=== PATIENT | female | born 1945 | race Caucasian/White ===

== ENCOUNTER 2018-05-30 08:00 | Outpatient (CLI) | payer MEDICARE, OTHER ==
[2018-05-30 12:36] LABS: BASOPHILS # (AUTO) 0.1 10^3/uL (0.0-0.1); EOSINOPHILS # (AUTO) 0.2 10^3/uL (0.0-0.7); EOSINOPHILS % (AUTO) 3.1 %; HGB - HEMOGLOBIN 13.4 g/dL (12.0-16.0); LYMPHOCYTES # (AUTO) 1.2 10^3/uL (1.5-3.5); MEAN CORPUSCULAR HEMOGLOBIN 28.8 pg (27.0-31.0); MEAN CORPUSCULAR HGB CONC 33.1 g/dL (32.0-36.0); MEAN CORPUSCULAR VOLUME 87.1 fL (81.0-99.0); MEAN PLATELET VOLUME 10.3 fL (7.9-10.8); MONOCYTES # (AUTO) 0.6 10^3/uL (0.0-1.0); MONOCYTES % (AUTO) 8.5 %; NEUTROPHILS # (AUTO) 5.1 10^3/uL (1.5-6.6); NEUTROPHILS % (AUTO) 69.4 %; PLT - PLATELET COUNT 238 10^3/uL (130-450); RED BLOOD COUNT 4.65 10^6/uL (4.20-5.40); RED CELL DISTRIBUTION WIDTH 13.7 % (12.0-15.0); WHITE BLOOD COUNT 7.3 x10^3/uL (4.8-10.8)
[2018-05-30 12:37] LABS: CALCIUM 9.1 mg/dL (8.5-10.3); CARBON DIOXIDE - CO2 27 mmol/L (21-32); CHLORIDE 99 mmol/L (101-111); GLUCOSE 132 mg/dL (70-100); SODIUM 135 mmol/L (135-145)
[2018-05-30 12:52] LABS: HB2 TOTAL 14.3 g/dL; HEMOGLOBIN A1C 0.73 g/dL; HEMOGLOBIN A1C % 6.8 % (4.6-6.2)
[2018-05-30 13:09] LABS: ALBUMIN 3.9 g/dL (3.2-5.5); ALBUMIN/GLOBULIN RATIO 1.1 (1.0-2.2); ALKALINE PHOSPHATASE 66 IU/L (42-121); ALT ALANINE AMINOTRANSFERASE 21 IU/L (10-60); AST ASPARTATE AMINOTRANSFERASE 23 IU/L (10-42); BILIRUBIN,TOTAL 0.9 mg/dL (0.2-1.0); BUN - BLOOD UREA NITROGEN 14 mg/dL (6-20); CHOL/HDL RATIO 4.5 (<4.4); CHOLESTEROL 201 mg/dL; CREATININE 0.8 mg/dL (0.4-1.0); GFR - MDRD 70 (>89); HDL CHOLESTEROL 45 mg/dL; LDL CHOLESTEROL,CALCULATED 130 mg/dL; LDL/HDL RATIO 2.9 (<4.4); TOTAL PROTEIN 7.3 g/dL (6.7-8.2); VLDL CHOLESTEROL 26 mg/dL
== END 2018-05-30 08:01 ==
LOC: LAB.WCP 08:00
PROVIDERS: ATTEND Physician Assistant
DX: Z79.899 Other long term (current) drug therapy (principal); E78.5 Hyperlipidemia, unspecified; R73.9 Hyperglycemia, unspecified
CPT/HCPCS: 36415; 80053; 80061; 83036; 83721; 85025

== ENCOUNTER 2018-06-06 08:10 | Outpatient (CLI) | payer MEDICARE, OTHER ==
--- NOTE | 2018-06-06 14:45 | DEXA Report ---
Procedure Date: 06/06/2018 Accession Number: [id number] / [id number] Procedure: DEX - Dexa Spine and/or Hip CPT Code: FULL RESULT: EXAM: Dexa Spine and/or Hip DATE: 06/06/2018 8:51 AM CLINICAL HISTORY: POSTMENOPAUSAL TECHNIQUE: Dual energy x-ray absorptiometry (DXA) was performed on a [employer] System. Regions measured are the AP Spine, femoral neck, and if needed forearm. COMPARISON: None. In accordance with the International Society for Clinical Densitometry (ISCD) guidelines, data from previous exams may be reanalyzed using current recommendations and techniques. This is done to allow a more accurate basis for comparison with the current study. FINDINGS: The data for the lumbar spine is as follows: BMD (g/cm/cm) T-SCORE Z-SCORE REGION L1 1.265 1.1 1.7 L2 1.367 1.4 2.0 L3 1.358 1.3 1.9 L4 1.374 1.4 2.0 TOTAL 1.344 1.4 2.0 NOTE: All evaluable vertebrae are used for classification The data for the hip is as follows: BMD (g/cm/cm) T-SCORE Z-SCORE REGION Neck 0.806 -1.7 -0.5 TOTAL 0.882 -1.0 -0.1 NOTE: The femoral neck or total proximal femur, whichever is lowest, is used for classification. IMPRESSION: THE WHO CLASSIFICATION BASED ON THE INTERNATIONAL REFERENCE STANDARD IS OSTEOPENIA. THE FRACTURE RISK IS INCREASED. RECOMMENDATION: Patients with diagnosis of osteoporosis or osteopenia should have regular bone mineral density assessment. For those eligible for Medicare, routine testing is allowed once every 2 years. Testing frequency can be increased for patients who have rapidly progressing disease or for those who are receiving medical therapy to restore bone mass. COMMENT: World Health Organization (WHO) definitions for osteoporosis and osteopenia: NORMAL BMD: T-score at -1.0 or higher, fracture risk is low OSTEOPENIA BMD: T-score between -1.0 and -2.5, fracture risk is increased. OSTEOPOROSIS BMD: T-score at -2.5 or lower, fracture risk is high. National Osteoporosis Foundation recommends: 1. Obtain adequate dietary calcium (at least 1200 mg per day) and vitamin D (400-800 international units per day). 2. Participate, as appropriate, in regular weightbearing and muscle-strengthening exercise. 3. Avoid tobacco use and reduce alcohol and caffeine intake. 4. For more detailed information see the website at www.NOF.org.
== END 2018-06-06 08:11 | disposition home or self-care (01) ==
LOC: DI 08:10
PROVIDERS: ATTEND Physician Assistant
DX: M85.88 Other specified disorders of bone density and structure, other site (principal)
CPT/HCPCS: 77080

== ENCOUNTER 2018-07-26 06:08 | Day surgery (SDC) | payer MEDICARE, OTHER ==
[2018-07-26] MEDS ORDERED: KETOROLAC 0.45% OPHTH DROPS ONE (06:18)
[2018-07-26] MEDS ORDERED: PHENYLEPHRINE 2.5% OPHTH 2 ML DROPS ONE (06:18)
[2018-07-26] MEDS ORDERED: CYCLOPENTOLATE 1% OPHTH DROPS 2 ML ONE (06:19)
[2018-07-26] MEDS ORDERED: PROPARACAINE 0.5% OPHTH DROPS 15 ML ONE (06:19)
[2018-07-26] MEDS ORDERED: KETOROLAC 0.45% OPHTH DROPS RIGHTEYE ONE (06:40)
[2018-07-26] MEDS ORDERED: CYCLOPENTOLATE 1% OPHTH DROPS 2 ML RIGHTEYE ONE (06:40)
[2018-07-26] MEDS ORDERED: PHENYLEPHRINE 2.5% OPHTH 2 ML DROPS RIGHTEYE ONE (06:40)
[2018-07-26] MEDS ORDERED: PROPARACAINE 0.5% OPHTH DROPS 15 ML RIGHTEYE ONE ×2 (06:40→08:25)
[2018-07-26] MEDS ORDERED: LACTATED RINGERS 500 ML IV ONE (06:51)
[2018-07-26] MEDS ORDERED: EPINEPHrine 1 MG/ML AMP ONE (06:52)
[2018-07-26] MEDS ORDERED: BRIMONIDINE 0.2% OPHTH DROPS 5 ML ONE (06:53)
[2018-07-26] MEDS ORDERED: TRIAMCIN/MOXIFLOX OPHTHALMIC 0.6 ML VIAL IO ONE (06:53)
[2018-07-26] MEDS ORDERED: TIMOLOL 0.5% OPHTH DROPS ONE (06:54)
[2018-07-26] MEDS ORDERED: BSS/LIDOCAINE/EPINEPHRINE 1 ML SYRINGE ONE (06:55)
--- NOTE | 2018-07-26 07:15 | ANESTHESIA ---
Pre-Anesthesia VS, & Labs - Diagnosis senile combined cataract, right - Procedure right lazer assisted cataract extraction with intraocular lens implant Vital Signs: Temp Pulse Resp BP Pulse Ox 36.3 C L 16 155/85 H 96 07/26/18 06:29 07/26/18 06:29 07/26/18 06:29 07/26/18 06:29 Height 5 ft 2 in Weight (kg) 99.7 kg Body Mass Index 41.0 - NPO >8 hours - Is Patient ?: Not Applicable Home Medications and Allergies Home Medications: Ambulatory Orders Medication Instructions Recorded Confirmed Aspirin 81 mg PO DAILY 07/20/18 07/26/18 Mecobalamin [B-12] 5,000 mcg PO DAILY 07/20/18 07/26/18 Metformin HCl [Metformin HCl ER] 1,000 mg PO BID 07/20/18 07/26/18 Triamterene/Hydrochlorothiazid 1 each PO DAILY 07/20/18 07/26/18 [Triamterene-Hctz 37.5-25 mg Tb] Naproxen Sodium [Aleve] 1 - 2 tab PO DAILY 07/26/18 07/26/18 Allergies/Adverse Reactions: Allergies Allergy/AdvReac Type Severity Reaction Status Date / Time No Known Drug Allergies Allergy Verified 07/26/18 06:31 Anes History & Medical History - Anesthetic History Anesthesia Complications: reports: No previous complications - Medical History Cardiovascular: reports: Hypertension, High cholesterol Pulmonary: reports: Shortness of breath Gastrointestinal: reports: None Urinary: reports: Frequency Neuro: reports: None Musculoskeletal: reports: Osteoarthritis, Osteopenia Endocrine/Autoimmune: reports: Type 2 diabetes Blood Disorders: reports: None Skin: reports: None Smoking Status: Never smoker - Surgical History General: Colonoscopy Gynecologic: section Exam General: Alert Dental: WNL Mouth Openin Fingerbreadth Mallampati classification: II Thyromental Distance: 4-6 cm Respiratory: Lungs clear Cardiovascular: Regular rate, Normal S1, Normal S2 Mental/Cognitive Status: Alert/Oriented X3 Cognitive Status: Within normal limits Plan Anesthesia Type: MAC Consent for Procedure(s) Verified and Reviewed: No Code Status: Attempt Resuscitation ASA classification: 2-Mild systemic disease Is this case an emergency?: No
[2018-07-26] MEDS ORDERED: MIDAZOLAM 2 MG/2 ML VIAL IVP ONE (08:36)
[2018-07-26] MEDS ORDERED: BRIMONIDINE 0.2% OPHTH DROPS 5 ML OPTH ONE (08:40)
[2018-07-26] MEDS ORDERED: EPINEPHrine 1 MG/ML AMP IVP ONE (08:40)
[2018-07-26] MEDS ORDERED: TIMOLOL 0.5% OPHTH DROPS OPTH ONE (08:41)
[2018-07-26] MEDS ORDERED: CHONDR SULF/HYALURONATE SYRINGE IO ONE (08:41)
[2018-07-26] MEDS ORDERED: BSS/LIDOCAINE/EPINEPHRINE 1 ML SYRINGE IO ONE ×2 (08:41)
[2018-07-26] MEDS ORDERED: TRIAMCIN/MOXIFLOX/VANCO 1 ML VIAL IO ONE (08:41)
--- NOTE | 2018-07-26 09:26 | OPERATIVE REPORT ---
DATE OF SERVICE: 07/26/2018 Physician: Chava Hurtado MD PREOPERATIVE DIAGNOSIS: Visually significant cataract, right eye. This was her first cataract surgery. POSTOPERATIVE DIAGNOSIS: Visually significant cataract, right eye. PROCEDURE: Phacoemulsification with posterior chamber intraocular lens implant, right eye. SURGEON: Chava Hurtado MD. ANESTHESIA: Monitored anesthesia care. COMPLICATIONS: None. OPERATIVE INDICATIONS: This is a 73-year-old woman with progressive vision loss in the right eye due to 4+ nuclear sclerotic, 1+ cortical and vacuolar cataract. Best corrected visual acuity was 20/50 with glare to 20/400 in the right eye. INDICATIONS FOR SURGERY 1. Overall decrease in vision. 2. Difficulty seeing street signs. 3. Difficulty driving in low light or at night. 4. Difficulty driving at night because of the headlights from other vehicles and/or street lights. INFORMED CONSENT: She was consented at length concerning risks and benefits of cataract surgery, aft er which she expressed a desire to proceed with surgery. OPERATIVE PROCEDURE: Patient was taken into OR #3 and placed under monitored anesthesia care. A vianney gical timeout was conducted confirming correct patient, correct procedure, and correct surgical site. She was given topical anesthesia and prepped and draped in usual sterile fashion. The eye was ente red at the 12 and 9-o'clock positions. Intracameral Shugarcaine was injected into the anterior chamb er, followed by Viscoat. A continuous-tear curvilinear capsulorrhexis was performed. The nucleus wa s hydrodissected and phacoemulsified. The cortex was evacuated using automated infusion and aspirati on. Provisc was injected in the capsular bag, and a 21.0-diopter intraocular lens inserted in the ba g. Approximately 0.8 mL of a mixture of triamcinolone, moxifloxacin, and vancomycin was injected sub conjunctivally in the superior quadrant for infection and inflammation prophylaxis. I and A was used to evacuate the viscoelastic materials. Eye was inflated to physiologic pressure using a balanced s alt solution and found to be watertight. Patient was taken from the operating room in good condition and given postoperative instructions. TD: 07/26/2018 09:12
[2018-07-26 09:28] VITALS: BP 141/68
== END 2018-07-26 06:09 | disposition home or self-care (01) ==
LOC: SDS 06:08
PROVIDERS: ATTEND Ophthalmology
PROC: 08RJ3JZ Replacement of Right Lens with Synthetic Substitute, Percutaneous Approach (ICD-10-PCS; principal; 2018-07-26 07:30)
DX: H25.811 Combined forms of age-related cataract, right eye (principal); E11.9 Type 2 diabetes mellitus without complications; I10 Essential (primary) hypertension; E78.00 Pure hypercholesterolemia, unspecified; M19.90 Unspecified osteoarthritis, unspecified site; M85.80 Other specified disorders of bone density and structure, unspecified site; R35.0 Frequency of micturition; Z79.82 Long term (current) use of aspirin; Z79.84 Long term (current) use of oral hypoglycemic drugs
CPT/HCPCS: 66984; A9270; J3490; V2632

== ENCOUNTER 2018-11-22 08:53 | Outpatient (CLI) | payer MEDICARE, OTHER ==
[2018-11-22 13:54] LABS: HB2 TOTAL 13.5 g/dL; HEMOGLOBIN A1C 0.59 g/dL; HEMOGLOBIN A1C % 6.1 % (4.6-6.2)
== END 2018-11-22 23:59 | disposition home or self-care (01) ==
LOC: LAB.WCP 08:53
PROVIDERS: ATTEND Physician Assistant
DX: E11.9 Type 2 diabetes mellitus without complications (principal)
CPT/HCPCS: 36415; 83036

== ENCOUNTER 2019-05-10 07:17 | Outpatient (CLI) | payer MEDICARE, OTHER ==
[2019-05-10 12:51] LABS: BASOPHILS # (AUTO) 0.1 10^3/uL (0.0-0.1); BASOPHILS % (AUTO) 0.9 %; EOSINOPHILS # (AUTO) 0.3 10^3/uL (0.0-0.7); EOSINOPHILS % (AUTO) 5.7 %; HGB - HEMOGLOBIN 13.2 g/dL (12.0-16.0); LYMPHOCYTES # (AUTO) 1.2 10^3/uL (1.5-3.5); LYMPHOCYTES % (AUTO) 22.6 %; MEAN CORPUSCULAR HEMOGLOBIN 27.8 pg (27.0-31.0); MEAN CORPUSCULAR VOLUME 89.9 fL (81.0-99.0); MEAN PLATELET VOLUME 11.9 fL (7.9-10.8); MONOCYTES # (AUTO) 0.6 10^3/uL (0.0-1.0); MONOCYTES % (AUTO) 10.8 %; NEUTROPHILS # (AUTO) 3.3 10^3/uL (1.5-6.6); NEUTROPHILS % (AUTO) 59.8 %; PLT - PLATELET COUNT 273 10^3/uL (130-450); RED BLOOD COUNT 4.74 10^6/uL (4.20-5.40); RED CELL DISTRIBUTION WIDTH 13.3 % (12.0-15.0); WHITE BLOOD COUNT 5.4 x10^3/uL (4.8-10.8)
[2019-05-10 13:12] LABS: ALBUMIN 4.1 g/dL (3.2-5.5); ALBUMIN/GLOBULIN RATIO 1.2 (1.0-2.2); ALKALINE PHOSPHATASE 64 IU/L (42-121); ALT ALANINE AMINOTRANSFERASE 23 IU/L (10-60); AST ASPARTATE AMINOTRANSFERASE 24 IU/L (10-42); BILIRUBIN,TOTAL 0.8 mg/dL (0.2-1.0); BUN - BLOOD UREA NITROGEN 15 mg/dL (6-20); CALCIUM 9.6 mg/dL (8.5-10.3); CARBON DIOXIDE - CO2 26 mmol/L (21-32); CHLORIDE 101 mmol/L (101-111); CHOLESTEROL 180 mg/dL; CREATININE 0.8 mg/dL (0.4-1.0); GFR - MDRD 70 (>89); GLUCOSE 120 mg/dL (70-100); HDL CHOLESTEROL 45 mg/dL; LDL CHOLESTEROL,CALCULATED 106 mg/dL; LDL/HDL RATIO 2.4 (<4.4); SODIUM 138 mmol/L (135-145); TOTAL PROTEIN 7.4 g/dL (6.7-8.2); VLDL CHOLESTEROL 29 mg/dL
[2019-05-10 13:18] LABS: HB2 TOTAL 13.8 g/dL; HEMOGLOBIN A1C 0.59 g/dL; HEMOGLOBIN A1C % 6.1 % (4.6-6.2)
== END 2019-05-10 07:18 | disposition home or self-care (01) ==
LOC: LAB.WCP 07:17
PROVIDERS: ATTEND Physician Assistant
DX: E11.9 Type 2 diabetes mellitus without complications (principal); E78.5 Hyperlipidemia, unspecified
CPT/HCPCS: 36415; 80053; 80061; 83036; 83721; 85025

== ENCOUNTER 2019-05-15 12:38 | Outpatient (CLI) | payer MEDICARE, OTHER ==
--- NOTE | 2019-05-21 11:18 | Mammography Report ---
Reason: SCREENING MAMMO Procedure Date: 05/15/2019 Accession Number: [id number] / [id number] Procedure: KHUSHI - Screening Mammo w/Pedrito CPT Code: FULL RESULT: EXAM: Screening Mammo w/Pedrito DATE: 05/15/2019 1:25 PM CLINICAL HISTORY: Screening encounter. History of left breast core biopsy with negative pathology. TECHNIQUE: (B) - Bilateral CC and MLO views were obtained. COMPARISON: 06/20/2015 through 02/21/2012. PARENCHYMAL PATTERN: (D) - The breast(s) demonstrate(s) heterogeneously dense fibroglandular parenchyma. FINDINGS: Postbiopsy changes in the left breast including a clip are redemonstrated. Differences in appearance of this area if felt to be due to differences in technique given that there is essentially no change comparing back to more remote studies such as May 2013 and February 2012. There are no suspicious masses, calcifications, or areas of distortion. IMPRESSION: Benign findings. BI-RADS category 2. RECOMMENDATION: (ANNUAL) - Recommend routine annual screening mammography. BI-RADS CATEGORY: (2) - Benign Findings. STANDARD QUALIFYING STATEMENTS: 1. This examination was not reviewed with the aid of Computer-Aided Detection (CAD). 2. A negative or benign imaging report should not preclude biopsy if clinically suspicious findings are present. 3. Dense breasts may obscure an underlying neoplasm. 4. This examination was reviewed with the aid of 3D breast imaging (tomosynthesis).
== END 2019-05-15 12:39 | disposition home or self-care (01) ==
LOC: DI 12:38
DX: Z12.31 Encounter for screening mammogram for malignant neoplasm of breast (principal)
CPT/HCPCS: 77063; 77067

== ENCOUNTER 2019-05-30 07:14 | Day surgery (SDC) | payer MEDICARE, OTHER ==
[~2019-05-30 07:14] MED LIST: CYCLOPENTOLATE 1% OPHTH DROPS 2 ML ONE; KETOROLAC 0.45% OPHTH DROPS ONE; PHENYLEPHRINE 2.5% OPHTH 2 ML DROPS ONE; PROPARACAINE 0.5% OPHTH DROPS 15 ML ONE
[2019-05-30] MEDS ORDERED: EPINEPHrine 1 MG/ML AMP ONE (07:16)
[2019-05-30] MEDS ORDERED: BSS/LIDOCAINE/EPINEPHRINE 1 ML SYRINGE ONE (07:18)
[2019-05-30] MEDS ORDERED: TIMOLOL 0.5% OPHTH DROPS ONE (07:19)
[2019-05-30] MEDS ORDERED: BRIMONIDINE 0.2% OPHTH DROPS 5 ML ONE (07:20)
[2019-05-30] MEDS ORDERED: TRIAMCIN/MOXIFLOX OPHTHALMIC 0.6 ML VIAL IO ONE ×2 (07:20→09:02)
[2019-05-30] MEDS ORDERED: LACTATED RINGERS 500 ML IV ONE (07:21)
[2019-05-30] MEDS ORDERED: KETOROLAC 0.45% OPHTH DROPS LEFTEYE ONE (07:35)
[2019-05-30] MEDS ORDERED: PHENYLEPHRINE 2.5% OPHTH 2 ML DROPS LEFTEYE ONE (07:35)
[2019-05-30] MEDS ORDERED: PROPARACAINE 0.5% OPHTH DROPS 15 ML LEFTEYE ONE (07:35)
[2019-05-30] MEDS ORDERED: CYCLOPENTOLATE 1% OPHTH DROPS 2 ML LEFTEYE ONE (07:35)
--- NOTE | 2019-05-30 07:56 | ANESTHESIA ---
Pre-Anesthesia VS, & Labs - Diagnosis left eye senile combined cataract - Procedure left extraction cataract with lens implant Vital Signs: Temp Pulse Resp BP Pulse Ox 36.0 C L 80 17 155/82 H 98 05/30/19 07:30 05/30/19 07:30 05/30/19 07:30 05/30/19 07:30 05/30/19 07:30 Height 5 ft 1 in Weight (kg) 96 kg Body Mass Index 40.2 - NPO >8 hours - Is Patient ?: Not Applicable - Lab Results Current Lab Results: Laboratory Tests 05/30/19 07:34: POC Whole Bld Glucose 108 H Home Medications and Allergies Aspirin 81 mg PO DAILY 07/20/18 Mecobalamin [B-12] 5,000 mcg PO DAILY 07/20/18 Metformin HCl [Metformin HCl ER] 1,000 mg PO BID 07/20/18 Triamterene/Hydrochlorothiazid [Triamterene-Hctz 37.5-25 mg Tb] 1 each PO DAILY 07/20/18 Naproxen Sodium [Aleve] 1 - 2 tab PO DAILY 07/26/18 Allergies/Adverse Reactions: Allergies Allergy/AdvReac Type Severity Reaction Status Date / Time No Known Drug Allergies Allergy Verified 07/26/18 06:31 Anes History & Medical History - Anesthetic History Anesthesia Complications: reports: No previous complications Family history of Anesthesia Complications: Denies Family history of Malignant Hyperthermia: Denies - Medical History Cardiovascular: reports: Hypertension, High cholesterol Pulmonary: reports: Shortness of breath Gastrointestinal: reports: None Urinary: reports: Frequency Neuro: reports: None Musculoskeletal: reports: Osteoarthritis, Osteopenia Endocrine/Autoimmune: reports: Type 2 diabetes Blood Disorders: reports: None Skin: reports: None Smoking Status: Never smoker - Surgical History General: Colonoscopy Eyes Ears Nose Throat (EENT): Cataracts Gynecologic: section Orthopedic: Knee replacement Exam General: Alert, Oriented x3, Cooperative, No acute distress Dental: Other (bridge , cap) Mouth Openin Fingerbreadth Neck Mobility: Normal Mallampati classification: II Thyromental Distance: greater than 6 cm Respiratory: Lungs clear Cardiovascular: Regular rate, Normal S1, Normal S2, No murmurs Plan Anesthesia Type: MAC Consent for Procedure(s) Verified and Reviewed: Yes Code Status: Attempt Resuscitation ASA classification: 2-Mild systemic disease Is this case an emergency?: No
[2019-05-30] MEDS ORDERED: fentaNYL 100 MCG/2 ML VIAL IVP ONE (08:50)
[2019-05-30] MEDS ORDERED: MIDAZOLAM 2 MG/2 ML VIAL IVP ONE (08:50)
[2019-05-30] MEDS ORDERED: EPINEPHrine 1 MG/ML AMP IVP ONE (09:00)
[2019-05-30] MEDS ORDERED: TIMOLOL 0.5% OPHTH DROPS OPTH ONE (09:00)
[2019-05-30] MEDS ORDERED: CHONDR SULF/HYALURONATE SYRINGE IO ONE (09:00)
[2019-05-30] MEDS ORDERED: BRIMONIDINE 0.2% OPHTH DROPS 5 ML OPTH ONE (09:00)
[2019-05-30] MEDS ORDERED: BSS/LIDOCAINE/EPINEPHRINE 1 ML SYRINGE IO ONE (09:01)
[2019-05-30] MEDS ORDERED: VANCOMYCIN OPHTHALMI 8MG/0.8ML 8 MG/0.8 ML SYRINGE IO ONE (09:02)
[2019-05-30 09:36] VITALS: BP 122/69
--- NOTE | 2019-05-30 09:58 | OPERATIVE REPORT ---
DATE OF SERVICE: 05/30/2019 Physician: Chava Hurtado MD PREOPERATIVE DIAGNOSIS: Visually significant cataract, left eye. Cataract surgery was performed on the right eye on 07/26/2018. POSTOPERATIVE DIAGNOSIS: Visually significant cataract, left eye. Cataract surgery was performed on the right eye on 07/26/2018. PROCEDURE: Phacoemulsification with posterior chamber intraocular lens implant, left eye. SURGEON: Chava Hurtado MD ANESTHESIA: Monitored anesthesia care. COMPLICATIONS: None. OPERATIVE INDICATIONS: This is a 74-year-old woman with progressive vision loss in the left eye due to 4+ nuclear sclerotic, 1+ cortical and vacuolar cataract. Best corrected visual acuity was 20/60 with glare to 20/800 in the left eye. Indications for surgery were overall decrease in vision, difficulty seeing words on a computer screen, difficulty reading, difficulty seeing street signs and difficulty driving in low light or at night. She was consented at length concerning risks and benefits of cataract surgery, after which she expressed a desire to proceed with surgery. OPERATIVE PROCEDURE: The patient was taken to OR #3 and placed under monitored anesthesia care. A surgical timeout was conducted confirming correct patient, correct procedure, and correct surgical site. She was given topical anesthesia, then prepped and draped in the usual sterile fashion. The eye was entered at the 6 and 3 o'clock positions. Intracameral Shugarcaine was injected into the anterior chamber, followed by Viscoat. A continuous-tear curvilinear capsulorrhexis was performed. The nucleus was hydrodissected and phacoemulsified. The cortex was evacuated using automated infusion and aspiration (I&A). Provisc was injected in to the capsular bag and a 20.5 diopter intraocular lens inserted in the bag. Approximately 0.8 mL mixture of triamcinolone, moxifloxacin and vancomycin was injected subconjunctivally in the superior quadrant for infection and inflammation prophylaxis. I&A was used to evacuate the viscoelastic materials. The eye was inflated to physiologic pressure using balanced salt solution and found to be watertight. The patient was taken from the operating room in good condition and given postoperative instructions. TD: 05/30/2019 09:24 MTDPk
== END 2019-05-30 07:15 | disposition home or self-care (01) ==
LOC: SDS 07:14
PROVIDERS: ATTEND Ophthalmology
PROC: 08RK3JZ Replacement of Left Lens with Synthetic Substitute, Percutaneous Approach (ICD-10-PCS; principal; 2019-05-30 08:30)
DX: H25.812 Combined forms of age-related cataract, left eye (principal); E11.9 Type 2 diabetes mellitus without complications; I10 Essential (primary) hypertension
CPT/HCPCS: 66984; A9270; J3490; V2632

== ENCOUNTER 2019-08-23 09:36 | Outpatient (CLI) | payer MEDICARE, OTHER ==
[2019-08-23 13:07] LABS: HB2 TOTAL 13.5 g/dL; HEMOGLOBIN A1C 0.61 g/dL; HEMOGLOBIN A1C % 6.3 % (4.6-6.2)
== END 2019-08-23 09:37 | disposition home or self-care (01) ==
LOC: LAB.WCP 09:36
PROVIDERS: ATTEND Physician Assistant
DX: E11.9 Type 2 diabetes mellitus without complications (principal)
CPT/HCPCS: 36415; 83036

== ENCOUNTER 2019-09-23 09:55 | Outpatient (CLI) | payer MEDICARE, OTHER ==
[2019-09-23 11:55] LABS: BASOPHILS # (AUTO) 0.1 10^3/uL (0.0-0.1); BASOPHILS % (AUTO) 1.4 %; EOSINOPHILS # (AUTO) 0.2 10^3/uL (0.0-0.7); EOSINOPHILS % (AUTO) 2.5 %; HGB - HEMOGLOBIN 12.9 g/dL (12.0-16.0); LYMPHOCYTES # (AUTO) 1.2 10^3/uL (1.5-3.5); MEAN CORPUSCULAR HEMOGLOBIN 28.6 pg (27.0-31.0); MEAN CORPUSCULAR VOLUME 92.2 fL (81.0-99.0); MEAN PLATELET VOLUME 12.1 fL (7.9-10.8); MONOCYTES # (AUTO) 0.8 10^3/uL (0.0-1.0); MONOCYTES % (AUTO) 11.3 %; NEUTROPHILS # (AUTO) 4.8 10^3/uL (1.5-6.6); NEUTROPHILS % (AUTO) 67.4 %; PLT - PLATELET COUNT 289 10^3/uL (130-450); RED BLOOD COUNT 4.51 10^6/uL (4.20-5.40); RED CELL DISTRIBUTION WIDTH 12.9 % (12.0-15.0); WHITE BLOOD COUNT 7.2 x10^3/uL (4.8-10.8)
[2019-09-23 12:26] LABS: ALBUMIN 4.3 g/dL (3.2-5.5); ALBUMIN/GLOBULIN RATIO 1.3 (1.0-2.2); BILIRUBIN,TOTAL 0.7 mg/dL (0.2-1.0); CALCIUM 9.5 mg/dL (8.5-10.3); CREATININE 0.8 mg/dL (0.4-1.0); TOTAL PROTEIN 7.7 g/dL (6.7-8.2)
== END 2019-09-23 23:59 | disposition home or self-care (01) ==
LOC: LAB.WCP 09:55
PROVIDERS: ATTEND Physician Assistant
DX: E11.9 Type 2 diabetes mellitus without complications (principal)
CPT/HCPCS: 36415; 80053; 85025

== ENCOUNTER 2019-10-03 08:49 | Outpatient (CLI) | payer MEDICARE, OTHER | END 2019-10-03 08:50 | disposition home or self-care (01) | LOC: DI 08:49 | PROVIDERS: ATTEND Physician Assistant | DX: I10 Essential (primary) hypertension (principal) | CPT/HCPCS: 93306 ==

== ENCOUNTER 2019-12-12 07:00 | Outpatient (CLI) | payer MEDICARE, OTHER ==
[2019-12-12 12:30] LABS: HB2 TOTAL 12.6 g/dL; HEMOGLOBIN A1C 0.53 g/dL
== END 2019-12-12 23:59 | disposition home or self-care (01) ==
LOC: LAB.WCP 07:00
PROVIDERS: ATTEND Physician Assistant
DX: E11.9 Type 2 diabetes mellitus without complications (principal)
CPT/HCPCS: 36415; 83036

== ENCOUNTER 2020-10-14 08:16 | Outpatient (CLI) | payer MEDICARE, OTHER ==
--- NOTE | 2020-10-15 07:44 | Mammography Report ---
BILATERAL DIGITAL SCREENING MAMMOGRAM 3D/2D: 10/14/2020 CLINICAL: Routine screening. Comparison is made to exams dated: 05/15/2019 mammogram - [facility] and 06/30/2015 m ammogram - [facility]. Mammogram dated 07/01/2014, 05/30/2013, and 02/21/2012. The tissue of both b reasts is heterogeneously dense. This may lower the sensitivity of mammography. There is a biopsy clip in the left breast. No significant masses, calcifications, or other findings are seen in either breast. There has been no significant interval change. IMPRESSION: NEGATIVE There is no mammographic evidence of malignancy. A 1 year screening mammogram is recommended. This exam was interpreted at Station ID: [id number]. NOTE: For mammograms, a report in lay terms will be sent to the patient. Approximately 15% of breast malignancies will not be visualized mammographically. In the management of a palpable breast mass, a negative mammogram must not discourage biopsy of a clinically suspicious lesion. Electronically Signed By: Tashi Leroy M.D. aty/:10/14/2020 09:46:26 ACR BI-RADS Category 1: Negative 3341F PARENCHYMAL PATTERN: (D) - The breast(s) demonstrate(s) heterogeneously dense fibroglandular lucie vergara. BI-RADS CATEGORY: (1) - 1 RECOMMENDATION: (ANNUAL) - Recommend routine annual screening mammography. [id number] 1 year screening LATERALITY: (B)
== END 2020-10-14 08:17 | disposition home or self-care (01) ==
LOC: DI.N 08:16
DX: Z12.31 Encounter for screening mammogram for malignant neoplasm of breast (principal)

== ENCOUNTER 2021-02-15 08:24 | Outpatient (CLI) | payer MEDICARE, OTHER ==
[2021-02-15 13:27] LABS: ALBUMIN 4.2 g/dL (3.2-5.5); ALBUMIN/GLOBULIN RATIO 1.2 (1.0-2.2); BILIRUBIN,TOTAL 0.9 mg/dL (0.2-1.0); CALCIUM 9.5 mg/dL (8.5-10.3); CREATININE 0.7 mg/dL (0.4-1.0); POTASSIUM 3.8 mmol/L (3.5-5.0); TOTAL PROTEIN 7.7 g/dL (6.7-8.2)
[2021-02-15 13:45] LABS: ESTIMATED AVERAGE GLUCOSE 140 mg/dL (70-100); HEMOGLOBIN A1c% 6.5 % (4.27-6.07)
[2021-02-15 13:54] LABS: CREATININE,URINE 47.2 mg/dL
[2021-02-15 14:44] LABS: MICROALBUMIN,URINE < 0.2 mg/dL (0-300.0)
== END 2021-02-15 23:59 | disposition home or self-care (01) ==
LOC: LAB.WCP 08:24
PROVIDERS: ATTEND Physician Assistant Medical
DX: E11.9 Type 2 diabetes mellitus without complications (principal)
CPT/HCPCS: 36415; 80053; 82043; 82570; 83036

== ENCOUNTER 2021-02-22 10:29 | Outpatient (CLI) | payer MEDICARE, OTHER ==
--- NOTE | 2021-02-22 11:12 | XRAY Report ---
PROCEDURE: Chest 2 View X-Ray INDICATIONS: COUGH TECHNIQUE: 2 view(s) of the chest. COMPARISON: None. FINDINGS: Surgical changes and devices: None. Lungs and pleura: No pleural effusions or pneumothorax. Lungs are clear. Mediastinum: Mediastinal contours are normal. Heart size is normal. Bones and chest wall: No suspicious bony abnormalities. Soft tissues appear unremarkable. IMPRESSION: No acute cardiopulmonary pathology. Reviewed by: Donte Oliver MD on 02/22/2021 10:11 AM BEN Approved by: Donte Oliver MD on 02/22/2021 10:11 AM [facility] Station ID: [id number]
== END 2021-02-22 10:30 | disposition home or self-care (01) ==
LOC: DI.N 10:29
PROVIDERS: ATTEND Physician Assistant Medical
DX: R05 Cough (principal)

== ENCOUNTER 2022-05-03 08:24 | Outpatient (CLI) | payer MEDICARE, OTHER ==
--- NOTE | 2022-05-03 13:44 | Mammography Report ---
BILATERAL DIGITAL SCREENING MAMMOGRAM 3D/2D: 05/03/2022 CLINICAL: Routine screening. Comparison is made to exams dated: 10/14/2020 mammogram, [facility] and [facility]2015 [facility] - [facility]. The tissue of both breasts is heterogeneously dense . This may lower the sensitivity of mammography. There is a 0.9 cm x 2.2 cm oval equal density mass with a circumscribed margin in the inframammary fo ld of the left breast at 7 o'clock. This is increased in size. No other significant masses, calcifications, or other findings are seen in either breast. IMPRESSION: INCOMPLETE: NEEDS ADDITIONAL IMAGING EVALUATION The 0.9 cm x 2.2 cm oval equal density mass in the inframammary fold of the left breast resembles a s kin lesion and is indeterminate. An ultrasound is recommended. This exam was interpreted at Station ID: [id number]. NOTE: For mammograms, a report in lay terms will be sent to the patient. Approximately 15% of breast malignancies will not be visualized mammographically. In the management of a palpable breast mass, a negative mammogram must not discourage biopsy of a clinically suspicious lesion. Electronically Signed By: Italo schuster/melvina:05/03/2022 11:45:50 ACR BI-RADS Category 0: Incomplete 3340F PARENCHYMAL PATTERN: (D) - The breast(s) demonstrate(s) heterogeneously dense fibroglandular lucie vergara. BI-RADS CATEGORY: (0) - 0 Ultrasound [id number] Immediate follow-up LATERALITY: (L)
== END 2022-05-03 08:25 | disposition home or self-care (01) ==
LOC: DI.N 08:24
DX: Z12.31 Encounter for screening mammogram for malignant neoplasm of breast (principal)

== ENCOUNTER 2022-05-13 12:33 | Outpatient (CLI) | payer MEDICARE, OTHER ==
--- NOTE | 2022-05-17 07:38 | Ultrasound Report ---
LIMITED ULTRASOUND OF LEFT BREAST: 05/13/2022 CLINICAL: Patient returns today to evaluate a focal asymmetry in the left breast. Comparison is made to exams dated: 05/03/2022 mammogram, 10/14/2020 mammogram, 05/15/2019 mammogram - [facility], and 06/30/2015 mammogram - [facility]. Color flow and real-time ultrasound of the left breast 7-8 o'clock region were performed on the area s of interest. Perez scale images of the real-time examination were reviewed. There is a 1.4 cm x 0.8 cm x 1.3 cm irregular cyst with a septated internal wall in the left breast a t 7 o'clock posterior depth. This irregular cyst displays posterior acoustic enhancement. This javid elates with mammography findings. IMPRESSION: PROBABLY BENIGN The 1.4 cm x 0.8 cm x 1.3 cm irregular cyst in the left breast is consistent with a complicated cyst and is probably benign. A follow-up ultrasound in 6 months is recommended to demonstrate stability. This exam was interpreted at Station ID: [id number]. Electronically Signed By: Janee ceron/:05/13/2022 13:28:33 Ultrasound BI-RADS: 3 Probably benign BI-RADS CATEGORY: (3) - 3 Ultrasound [id number] 6 month follow-up LATERALITY: (B)
== END 2022-05-13 12:34 | disposition home or self-care (01) ==
LOC: DI 12:33
PROVIDERS: ATTEND Physician Assistant Medical
DX: N60.02 Solitary cyst of left breast (principal)

== ENCOUNTER 2022-11-21 13:40 | Outpatient (CLI) | payer MEDICARE, OTHER ==
--- NOTE | 2022-11-22 10:49 | Ultrasound Report ---
LIMITED ULTRASOUND OF LEFT BREAST: 11/21/2022 CLINICAL: Patient returns for a 6 month follow up of the left breast. Comparison is made to exams dated: 05/13/2022 ultrasound, 05/03/2022 mammogram, 10/14/2020 mammogram, 05/15/2019 mammogram - [facility], and 06/30/2015 mammogram - [facility]. Color flow ultrasound of the left breast 6-7 o'clock region was performed. Perez scale images of the real-time examination were reviewed. There is a 1.8 cm x 0.7 cm x 1 cm irregular cyst with thin septated internal saravia in the left breast at 7 o'clock posterior depth 8 cm from the nipple. This irregular cyst displays posterior acoustic enhancement. This abnormality is not significantly changed and correlates with mammography findings. IMPRESSION: PROBABLY BENIGN The 1.8 cm x 0.7 cm x 1 cm irregular cyst in the left breast is consistent with a complicated cyst an d is probably benign. A follow-up bilateral mammogram and a left ultrasound in 6 months is recommended to demonstrate stabi lity. Findings and recommendations were conveyed to the patient during today's evaluation. This exam was interpreted at Station ID: [id number]. Electronically Signed By: Tashi Leroy M.D. aty/:11/21/2022 14:32:29 Ultrasound BI-RADS: 3 Probably benign BI-RADS CATEGORY: (3) - 3 Mammo and [place] [id number] 6 month follow-up LATERALITY: (B)
== END 2022-11-21 13:41 | disposition home or self-care (01) ==
LOC: DI 13:40
PROVIDERS: ATTEND Physician Assistant Medical
DX: N60.02 Solitary cyst of left breast (principal)

== ENCOUNTER 2023-06-14 09:36 | Outpatient (CLI) | payer MEDICARE, OTHER ==
--- NOTE | 2023-06-15 08:41 | DEXA Report ---
PROCEDURE: Dexa Spine and/or Hip INDICATIONS: POST MENOPAUSAL TECHNIQUE: Dual energy x-ray absorptiometry (DXA) was performed on a [employer] System. Regions measur ed are the AP Spine, femoral neck, and if needed forearm. COMPARISON: DEXA, 06/06/2018 FINDINGS: Lumbar Spine: Bone Mineral Density 1.354 g/cm/cm,T score 1.5. Left Femoral Neck: Bone Mineral Density 0.811 g/cm/cm, T score -1.6. Left Hip: Bone Mineral Density 0.855 g/cm/cm,T score is 1.2. (T score greater or equal to -1.0: NORMAL) (T score from -1.1 to -2.4: OSTEOPENIA) (T score less than or equal to -2.5 to: OSTEOPOROSIS) Compared with the last exam dated 06/06/2018, there is no statistically significant change. Impression: 1. By WHO criteria, this patient has low bone density (osteopenia). 2. Compared with the last exam dated 06/06/2018, there is no significantly change. Patients with diagnosis of osteoporosis or osteopenia should have regular bone mineral density assess ment. For those eligible for Medicare, routine testing is allowed once every 2 years. Testing frequ ency can be increased for patients who have rapidly progressing disease or for those who are receivin g medical therapy to restore bone mass. Reviewed by: Reinier Clark MD on 06/15/2023 8:39 AM PDT Approved by: Reinier Clark MD on 06/15/2023 8:39 AM PDT Station ID: [id number]
== END 2023-06-14 09:37 | disposition home or self-care (01) ==
LOC: DI 09:36
PROVIDERS: ATTEND Physician Assistant Medical
DX: Z78.0 Asymptomatic menopausal state (principal); M85.80 Other specified disorders of bone density and structure, unspecified site

== ENCOUNTER 2023-06-14 09:36 | Outpatient (CLI) | payer MEDICARE, OTHER ==
--- NOTE | 2023-06-14 16:18 | Ultrasound Report ---
LIMITED ULTRASOUND OF LEFT BREAST: 06/14/2023 CLINICAL: Patient returns for a 6 month follow up of the left breast. Comparison is made to exams dated: 06/14/2023 mammogram, 11/21/2022 ultrasound, 05/13/2022 ultrasound, 04/14 mammogram, 10/14/2020 mammogram, and 05/15/2019 mammogram - [facility]. Color flow ultrasound of the left breast 6-7 o'clock region was performed on the areas of interest. Perez scale images of the real-time examination were reviewed. There is a 1.8 cm x 0.7 cm x 1 cm irregular cyst with a septated internal wall in the left breast at 7 o'clock posterior depth 8 cm from the nipple. This irregular cyst displays posterior acoustic enha ncement. This abnormality is not significantly changed and correlates with mammography findings. IMPRESSION: PROBABLY BENIGN The 1.8 cm x 0.7 cm x 1 cm irregular cyst in the left breast is consistent with complicated cysts and is probably benign. A follow-up ultrasound in 12 months is recommended. This exam was interpreted at Station ID: [id number]. Electronically Signed By: Janee ceron/:06/14/2023 11:05:11 Ultrasound BI-RADS: 3 Probably benign BI-RADS CATEGORY: (3) - 3 Ultrasound [id number] 12 month follow-up LATERALITY: (B)
--- NOTE | 2023-06-14 16:18 | Mammography Report ---
BILATERAL DIGITAL DIAGNOSTIC MAMMOGRAM 3D/2D: 06/14/2023 CLINICAL: Patient returns for a 6 month follow up of the left breast, due for bilateral exam. Comparison is made to exams dated: 05/03/2022 mammogram, 10/14/2020 mammogram, 05/15/2019 mammogram - [facility], and 06/30/2015 mammogram - [facility]. Both breasts are heterogeneously dense, which may obscure small masses (category c / 51-75% glandular tissue). There is a stable focal asymmetry in the left breast at 7 o'clock posterior depth. No other significant masses, calcifications, or other findings are seen in either breast. IMPRESSION: INCOMPLETE: NEEDS ADDITIONAL IMAGING EVALUATION The stable focal asymmetry in the left breast is indeterminate. A targeted ultrasound of the left br east is recommended and will be performed immediately following this exam. Based on the Tyrer Cuzick model (a risk assessment model) the patients lifetime risk is 3.4% and her 10 year risk is 0.0%. According to the ACR, ACS, and NCCN guidelines, an annual breast MRI exam katalina g with mammogram is recommended if the patients lifetime risk is 20% or greater. This exam was interpreted at Station ID: [id number]. NOTE: For mammograms, a report in lay terms will be sent to the patient. Approximately 15% of breast malignancies will not be visualized mammographically. In the management of a palpable breast mass, a negative mammogram must not discourage biopsy of a clinically suspicious lesion. Electronically Signed By: Janee Lopez M.D. lk/:06/14/2023 10:37:12 ACR BI-RADS Category 0: Incomplete 3340F PARENCHYMAL PATTERN: (D) - The breast(s) demonstrate(s) heterogeneously dense fibroglandular lucie vergara. BI-RADS CATEGORY: (0) - 0 Ultrasound [id number] Immediate follow-up LATERALITY: (B)
== END 2023-06-14 09:37 | disposition home or self-care (01) ==
LOC: DI 09:36
PROVIDERS: ATTEND Physician Assistant Medical
DX: N60.02 Solitary cyst of left breast (principal); Z78.0 Asymptomatic menopausal state; M85.80 Other specified disorders of bone density and structure, unspecified site

== ENCOUNTER 2023-08-25 08:45 | Outpatient (CLI) | payer MEDICARE, OTHER ==
[2023-08-25 18:55] LABS: BACTERIAL VAGINOSIS DNA NEGATIVE (NEGATIVE); CANDIDA GLABRATA DNA NEGATIVE (NEGATIVE); CANDIDA GROUP DNA NEGATIVE (NEGATIVE); CANDIDA KRUSEI DNA NEGATIVE (NEGATIVE); TRICHOMONAS VAGINALIS DNA NEGATIVE (NEGATIVE)
== END 2023-08-25 09:00 | disposition home or self-care (01) ==
LOC: LAB.N 08:45
PROVIDERS: ATTEND Physician Assistant Medical
DX: N76.0 Acute vaginitis (principal)
CPT/HCPCS: 81514

== ENCOUNTER 2024-01-04 07:24 | Day surgery (SDC) | payer MEDICARE, OTHER ==
[2024-01-04] MEDS: LACTATED RINGERS 1,000 ML IV ONE (07:34)
[2024-01-04] MEDS ORDERED: PROPOFOL 500 MG/50 ML 500 MG/50 ML VIAL ONE (07:51)
--- NOTE | 2024-01-04 08:02 | ANESTHESIA ---
Pre-Anesthesia VS, & Labs - Diagnosis pos cologuard - Procedure colonoscopy Vital Signs: Temp Pulse Resp BP Pulse Ox O2 Flow Rate 36.6 C 95 18 160/79 H 95 01/04/24 07:47 01/04/24 07:47 01/04/24 07:47 01/04/24 07:47 01/04/24 07:47 Height: 5 ft 2 in Weight (kg): 90.4 kg Body Mass Index: 36.4 BMI Classification: Obese - NPO >8 hours - Is Patient ?: No Home Medications and Allergies Home Medications: Ambulatory Orders Famotidine [Acid-Pep] 20 mg PO DAILY 01/03/24 Rosuvastatin Calcium [Crestor] 10 mg PO DAILY 01/03/24 Semaglutide [Ozempic] 01/03/24 Semaglutide [Ozempic] 0.25 mg SQ OAW 01/03/24 oxyBUTYnin chloride [Oxybutynin Chloride] 5 mg PO BID 01/03/24 Metformin HCl [Metformin HCl ER] 1,000 mg PO BID 07/20/18 Triamterene/Hydrochlorothiazid [Triamterene-Hctz 37.5-25 mg Tb] 1 each PO DAILY 07/20/18 Famotidine [Acid-Pep] 20 mg PO DAILY 01/03/24 Rosuvastatin Calcium [Crestor] 10 mg PO DAILY 01/03/24 Semaglutide [Ozempic] 01/03/24 Semaglutide [Ozempic] 0.25 mg SQ OAW 01/03/24 oxyBUTYnin chloride [Oxybutynin Chloride] 5 mg PO BID 01/03/24 Allergies/Adverse Reactions: Allergies Allergy/AdvReac Type Severity Reaction Status Date / Time No Known Drug Allergies Allergy Verified 12/28/23 13:28 Anes History & Medical History - Anesthetic History Anesthesia Complications: reports: No previous complications Family history of Anesthesia Complications: Denies Family history of Malignant Hyperthermia: Denies - Medical History Cardiovascular: reports: Hypertension, High cholesterol Pulmonary: reports: None Gastrointestinal: reports: None Urinary: reports: Incontinence, Frequency Neuro: reports: None Musculoskeletal: reports: Osteoarthritis, Osteoporosis Endocrine/Autoimmune: reports: Type 2 diabetes Blood Disorders: reports: None Skin: reports: None Smoking Status: Never smoker Psychosocial: reports: No issues indicated History of Cancer?: No - Surgical History General: reports: Colonoscopy Eyes Ears Nose Throat (EENT): reports: Cataracts Gynecologic: reports: section Orthopedic: reports: Knee replacement Exam General: Alert, Oriented x3, Cooperative Dental: WNL, Other (bridge) Mouth Openin Fingerbreadth Neck Mobility: Normal Mallampati classification: II Thyromental Distance: 4-6 cm Respiratory: Lungs clear Cardiovascular: Regular rate Plan Anesthesia Type: General, Total IV Consent for Procedure(s) Verified and Reviewed: Yes Code Status: Attempt Resuscitation ASA classification: 2-Mild systemic disease Is this case an emergency?: No
--- NOTE | 2024-01-04 09:07 | HISTORY & PHYSICAL EXAMINATION ---
Chief Complaint - Chief Complaint Chief Complaint: here for colonoscopy History of Present Illness - History Obtained From Records Reviewed: yes History obtained from: pt Exam Limitations: hard of hearing - History of Present Illness HPI Comment/Other: recent cologuard positive. normal colonoscopy 8 years ago. 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 HEENT: reports: Cataracts Meds/Allgy - Home Medications Home Medications: Ambulatory Orders Medication Instructions Recorded Confirmed Metformin HCl [Metformin HCl ER] 1,000 mg PO BID 07/20/18 01/03/24 Triamterene/Hydrochlorothiazid 1 each PO DAILY 07/20/18 01/03/24 [Triamterene-Hctz 37.5-25 mg Tb] Famotidine [Acid-Pep] 20 mg PO DAILY 01/03/24 01/03/24 Rosuvastatin Calcium [Crestor] 10 mg PO DAILY 01/03/24 01/03/24 Semaglutide [Ozempic] 01/03/24 Semaglutide [Ozempic] 0.25 mg SQ OAW 01/03/24 01/03/24 oxyBUTYnin chloride [Oxybutynin 5 mg PO BID 01/03/24 01/03/24 Chloride] - Allergies Allergies/Adverse Reactions: Allergies Allergy/AdvReac Type Severity Reaction Status Date / Time No Known Drug Allergies Allergy Verified 12/28/23 13:28 Review of Systems - Other Findings Other Findings: 10 pt ros as above otherwise unremarkable Exam - Vital Signs Reviewed Vital Signs: Yes Vital Signs: Vital Signs x48h Temp Pulse Resp BP Pulse Ox 01/04/24 07:47 36.6 C 95 18 160/79 H 95 - Physical Exam General Appearance: positive: Alert Eyes Bilateral: positive: PERRL, EOMI, No scleral icterus ENT: positive: No signs of dehydration Neck: positive: No JVD Respiratory: positive: No respiratory distress Cardiovascular: positive: Regular rate & rhythm Abdomen: positive: No distention Neurologic/Psychiatric: positive: Oriented x3 Conclusion/Plan - Problem List (1) Abnormal stool test Conclusion/Plan: positive cologuard plan colonoscopy. parq held and consent obtained
[2024-01-04] MEDS: LACTATED RINGERS 500 ML IV ONE (09:50)
[2024-01-04 10:16] VITALS: BP 143/82; O2SAT 100
--- NOTE | 2024-01-04 17:12 | ANESTHESIA POST OP EVALUATION ---
Anesthesia Post Eval - Post Anesthesia Eval Vitals: Last Vital Signs Temp 36.2 C L 01/04/24 10:12 Pulse 86 01/04/24 10:12 Resp 16 01/04/24 10:12 BP 143/82 H 01/04/24 10:12 Pulse Ox 100 01/04/24 10:12 O2 Flow Rate CV Function Including HR & BP: Stable Pain Control: Satisfactory Nausea & Vomiting: Negative Mental Status: Baseline Respiratory Status: Airway Patent Hydration Status: Satisfactory Anesthesia Complications: None
== END 2024-01-04 07:25 | disposition home or self-care (01) ==
LOC: SDS 07:24
PROVIDERS: ATTEND Surgery
PROC: 0DBM8ZX Excision of Descending Colon, Via Natural or Artificial Opening Endoscopic, Diagnostic (ICD-10-PCS; 2024-01-04)
PROC: 0DBH8ZX Excision of Cecum, Via Natural or Artificial Opening Endoscopic, Diagnostic (ICD-10-PCS; 2024-01-04)
PROC: 0DBK8ZX Excision of Ascending Colon, Via Natural or Artificial Opening Endoscopic, Diagnostic (ICD-10-PCS; principal; 2024-01-04 08:30)
DX: D12.0 Benign neoplasm of cecum (principal); D12.2 Benign neoplasm of ascending colon; K57.30 Diverticulosis of large intestine without perforation or abscess without bleeding; R19.5 Other fecal abnormalities; I10 Essential (primary) hypertension; E78.00 Pure hypercholesterolemia, unspecified; E11.9 Type 2 diabetes mellitus without complications; Z79.84 Long term (current) use of oral hypoglycemic drugs; Z79.85 Long-term (current) use of injectable non-insulin antidiabetic drugs
CPT/HCPCS: 45380; 45385; J7120

== ENCOUNTER 2024-06-03 07:47 | Outpatient (CLI) | payer MEDICARE, OTHER ==
[~2024-06-03 07:47] MED LIST changes: -CYCLOPENTOLATE 1% OPHTH DROPS 2 ML ONE; +GADOTERATE MEGLUMINE 10 MMOL/20 ML VIAL ONE; -KETOROLAC 0.45% OPHTH DROPS ONE; -PHENYLEPHRINE 2.5% OPHTH 2 ML DROPS ONE; -PROPARACAINE 0.5% OPHTH DROPS 15 ML ONE
[2024-06-03 08:19] LABS: CREATININE 0.8 mg/dL (0.6-1.3)
[2024-06-03] MEDS: GADOTERATE MEGLUMINE 10 MMOL/20 ML VIAL IVP ONE (17:01)
--- NOTE | 2024-06-03 21:46 | MRI Report ---
PROCEDURE: Brain W/WO INDICATIONS: MEMORY LOSS CONTRAST: clariscan 18.2ml TECHNIQUE: Noncontrast axial T1 spin echo, axial T2 fast spin echo, sagittal and axial FLAIR, coronal T2 fast sp in echo, axial gradient echo, axial diffusion and ADC through the brain. After the administration of contrast, axial and coronal T1 spin echo with fat saturation through the brain. COMPARISON: None. FINDINGS: Image quality: Excellent. CSF spaces: Basal cisterns are patent. No extra-axial fluid collections. Ventricles are normal in size and shape. Brain: No midline shift. No intracranial bleeds or masses. No abnormal intracranial enhancement. There is cerebral volume loss for age. There is periventricular white matter chronic small vessel is chemic change. The brainstem appears normal. Diffusion-weighted images demonstrate no acute ischemi c insults. No chronic ischemic insults. Normal intravascular flow voids are present. Skull and face: Calvarial marrow is normal in signal. Orbits appear normal. Sinuses: Sinuses demonstrate minimal scattered areas of mucosal thickening. Mild to moderate fluid i s present within the mastoid air cells, left greater than right. Recommend correlation to patient's s ymptoms of potential mastoiditis. IMPRESSION: 1. No acute intracranial process. 2. Moderate atrophy and chronic microvascular ischemic changes. Reviewed by: Ronna Ojeda MD on 06/03/2024 9:44 PM PDT Approved by: Ronna Ojeda MD on 06/03/2024 9:44 PM PDT Station ID: [id number]
== END 2024-06-03 07:48 | disposition home or self-care (01) ==
LOC: DI 07:47
PROVIDERS: ATTEND Physician Assistant Medical
DX: R41.3 Other amnesia (principal); G31.89 Other specified degenerative diseases of nervous system; I67.82 Cerebral ischemia
CPT/HCPCS: 36415; 70553; 82565; A9575

== ENCOUNTER 2024-07-14 11:13 | Emergency (ER) | payer MEDICARE, OTHER ==
[2024-07-14 11:41] VITALS: BP 148/87; O2SAT 96
--- NOTE | 2024-07-14 13:23 | CT Report ---
PROCEDURE: Head WO INDICATIONS: fall, pain TECHNIQUE: Noncontrast 4.5 mm thick angled axial sections acquired from the foramen magnum to the vertex. For r adiation dose reduction, the following was used: automated exposure control, adjustment of mA and/or kV according to patient size. COMPARISON: Brain MRI 06/03/2024 FINDINGS: Image quality: Excellent. CSF spaces: Basal cisterns are patent. No extra-axial fluid collections. Ventricles are normal in size and shape. Brain: No midline shift. No intracranial masses or hemorrhage. Age-related global volume loss and chronic microvascular ischemic changes. Intracranial atherosclerotic vascular calcifications. Perez-w raven matter interface is normal. Skull and face: Calvarium and visualized facial bones are intact, without suspicious lesions. Sinuses: Visualized sinuses and mastoids are clear. IMPRESSION: No acute intracranial pathology. Reviewed by: Gaston Frazier MD on 07/14/2024 1:22 PM PDT Approved by: Gaston Frazier MD on 07/14/2024 1:22 PM PDT Station ID: [id number]
--- NOTE | 2024-07-14 13:26 | CT Report ---
PROCEDURE: Thoracic Spine WO INDICATIONS: fall,pain TECHNIQUE: Noncontrast 3 mm thick sections acquired through the region of interest in the thoracic spine. Sagit jennyfer and coronal reformats were then constructed. For radiation dose reduction, the following was used : automated exposure control, adjustment of mA and/or kV according to patient size. COMPARISON: None. FINDINGS: Image quality: Excellent. Bones: Mild dextrocurvature of the thoracic spine. Multilevel degenerative changes of the thoracic sp ine with disc height loss, degenerative endplate changes and spurring. No acute vertebral body compr ession fractures. No suspicious sclerotic or lytic bony lesions. Central spinal canal is of normal overall caliber. Soft tissues: No paravertebral masses or hematomas. Visualized posteromedial lungs appear clear. At herosclerotic vascular calcifications. Cholelithiasis IMPRESSION: No acute osseous abnormality. Multilevel degenerative changes of the spine. Reviewed by: Gaston Frazier MD on 07/14/2024 1:24 PM PDT Approved by: Gaston Frazier MD on 07/14/2024 1:24 PM PDT Station ID: [id number]
--- NOTE | 2024-07-14 13:33 | ED Physician Documentation ---
PD HPI BACK PAIN - Stated complaint Stated Complaint: BACK PX POST FALL - Chief complaint Chief Complaint: Back Pain - History obtained from History obtained from: Patient, Family - History of Present Illness Pain level max: 6 Pain level now: 4 Location: Mid Quality: Pain Associated symptoms: No: Fever, Weakness, Numbness, Incontinent of urine, Unable to urinate, Hematuria, Incontinent of stool Improves with: Rest Worsened by: Movement Contributing factors: No: Anticoagulated, Cancer, IVDA - Additional information Additional information: Patient is an 79-year-old female who fell at home, she is complaining of midthoracic back pain. Worse with movement, better with rest. The fall was yesterday. Motrin and Tylenol are helping at home. Does not believe that she struck her head. No numbness or tingling. No loss of bowel or bladder control. 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 HEENT: Cataracts - Present Medications Home Medications: Ambulatory Orders Medication Instructions Recorded Confirmed Metformin HCl [Metformin HCl ER] 1,000 mg PO BID 07/20/18 01/03/24 Triamterene/Hydrochlorothiazid 1 each PO DAILY 07/20/18 01/03/24 [Triamterene-Hctz 37.5-25 mg Tb] Famotidine [Acid-Pep] 20 mg PO DAILY 01/03/24 01/03/24 Rosuvastatin Calcium [Crestor] 10 mg PO DAILY 01/03/24 01/03/24 Semaglutide [Ozempic] 01/03/24 Semaglutide [Ozempic] 0.25 mg SQ OAW 01/03/24 01/03/24 oxyBUTYnin chloride [Oxybutynin 5 mg PO BID 01/03/24 01/03/24 Chloride] - Allergies Allergies/Adverse Reactions: Allergies Allergy/AdvReac Type Severity Reaction Status Date / Time No Known Drug Allergies Allergy Verified 07/14/24 11:22 - Social History Does the pt smoke?: No Smoking Status: Never smoker Does the pt drink ETOH?: No Does the pt have substance abuse?: No - POLST Patient has POLST: No PD ED PE NORMAL - Vitals Vital signs reviewed: Yes - General General: Alert and oriented X 3, No acute distress - HEENT HEENT: Atraumatic, PERRL, Moist mucous membranes - Neck Neck: Supple, no meningeal sign, No bony TTP - Cardiac Cardiac: RRR, Strong equal pulses - Respiratory Respiratory: No respiratory distress, Clear bilaterally - Abdomen Abdomen: Soft, Non tender, Non distended - Back Back: Other (Mild tenderness to palpation mid thoracic spine around T5-T6. 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 Normal great toe extension bilaterally. no saddle anesthesia) Eye Opening: Spontaneous Motor: Obeys Commands Verbal: Oriented GCS Score: 15 - Psych Psych: Normal mood, Normal affect Results - Vitals Vitals: Vital Signs - 24 hr 07/14/24 07/14/24 11:22 13:43 Temperature 37.1 C 37.1 C Heart Rate 92 92 Respiratory 17 17 Rate Blood Pressure 148/87 H 148/87 H O2 Saturation 96 96 Oxygen O2 Source Room air - Rads (name of study) CT head Relevant Findings:: Final report received, See rad report CT thoracic spine Relevant Findings:: Final report received, See rad report PD Medical Decision Making - ED course Complexity details: reviewed results, re-evaluated patient, considered differential, d/w patient ED course: No acute findings on head CT. No acute findings on CT of the thoracic spine. Neurovascular intact. No evidence of cauda equina, epidural abscess. Declines pain medication here for home. No evidence of intracranial hemorrhage. We will continue supportive care and have her follow-up with her doctor for further care. Ambulating without difficulty and without assistance. Patient and family counseled regarding signs and symptoms for which I believe and urgent re- evaluation would be necessary. Patient and family with good understanding of and agreement to plan and is comfortable going home at this time This document was made in part using voice recognition software. While efforts a re made to proofread this document, sound alike and grammatical errors may occur. Departure - Departure Disposition: 01 Home, Self Care Clinical Impression: Ground-level fall Back pain Qualifiers: Back pain location: thoracic back pain Chronicity: acute Back pain laterality: bilateral Qualified Code(s): M54.6 - Pain in thoracic spine Condition: Good Instructions: ED Neck Back Pain General Follow-Up: Svetlana Davidson PA-C [Primary Care Provider] - Within 1 week Comments: Your CT scans did not show any acute abnormalities. Please follow-up with your doctor for further care. Continue Motrin and Tylenol as needed for pain. Please return if you worsen. Discharge Date/Time: 07/14/24 13:43
[2024-07-14] MEDS: IBUPROFEN 600 MG TABLET PO STA (13:37)
== END 2024-07-14 13:43 | disposition home or self-care (01) ==
LOC: ED 11:13
DX: M54.6 Pain in thoracic spine (principal); W19.XXXA Unspecified fall, initial encounter; Y92.009 Unspecified place in unspecified non-institutional (private) residence as the place of occurrence of the external cause; Z91.81 History of falling
CPT/HCPCS: 70450; 72128; 99283; 99284; A9270